=== PATIENT | female | born 1990 | race Caucasian/White ===

== ENCOUNTER 2025-03-24 10:02 | Emergency (ER) | payer MEDICAID, OTHER ==
[~2025-03-24] VITALS: Ht 165.1 cm; Wt 77.3 kg
[2025-03-24 10:03] VITALS: BP 136/105; PULSE 100; RESP 18; TEMP 98.1; O2SAT 98
[2025-03-24] MEDS ORDERED: PANT-31 PO (10:12)
[2025-03-24] MEDS ORDERED: ONDA-104 PO (10:12)
[2025-03-24] MEDS ORDERED: CEPH-558 PO (10:12)
[2025-03-24] MEDS ORDERED: CHLO10CA7 PO (10:55)
== END 2025-03-24 11:09 | disposition home or self-care (01) ==
LOC: EMS 10:22
DX: S01.81XA Laceration without foreign body of other part of head, initial encounter (principal); S06.0XAA Concussion with loss of consciousness status unknown, initial encounter; F10.129 Alcohol abuse with intoxication, unspecified; F32.A Depression, unspecified; F17.210 Nicotine dependence, cigarettes, uncomplicated; F41.9 Anxiety disorder, unspecified; Z98.890 Other specified postprocedural states; Z86.73 Personal history of transient ischemic attack (TIA), and cerebral infarction without residual deficits; Z79.899 Other long term (current) drug therapy; W01.0XXA Fall on same level from slipping, tripping and stumbling without subsequent striking against object, initial encounter; Y93.89 Activity, other specified; Y92.89 Other specified places as the place of occurrence of the external cause; Y99.8 Other external cause status; Y90.9 Presence of alcohol in blood, level not specified
CPT/HCPCS: 99283; Z7502